=== PATIENT | male | born 1995 | race African-American/Black ===

== ENCOUNTER 2017-02-15 21:42 | Emergency (ER) | payer MEDICAID, OTHER ==
[2017-02-15] MEDS ORDERED: Ibuprofen 600 MG TAB ONE (22:22)
== END 2017-02-15 22:26 ==
LOC: SCSER 21:42
DX: S01.112A Laceration without foreign body of left eyelid and periocular area, initial encounter (principal); Y04.0XXA Assault by unarmed brawl or fight, initial encounter
CPT/HCPCS: 12011